=== PATIENT | female | born 1995 | race Two or more races ===

== ENCOUNTER 2021-01-31 10:36 | Emergency (ER) | payer BC, OTHER ==
[~2021-01-31] VITALS: Ht 170.2 cm; Wt 104.3 kg
[2021-01-31 12:00] VITALS: BP 136/95
[2021-01-31] MEDS ORDERED: KETOROLAC TROMETH 60MG/2ML VIAL IM ONE (12:00)
[2021-01-31 13:20] LABS: Urine Blood Normal /uL (Negative); Urine Specific Gravity 1.014 (1.001-1.035)
[2021-01-31 13:37] LABS: Urine Bacteria FEW /hpf (None Seen); Urine Mucus FEW (None Seen); Urine WBC 3 /hpf (0 - 5)
== END 2021-01-31 12:46 | disposition home or self-care (01) ==
LOC: ER 10:36
DX: M54.42 Lumbago with sciatica, left side (principal)
CPT/HCPCS: 81001; 96372; 99283; J1885